=== PATIENT | female | born 1945 ===

== ENCOUNTER → 2025-02-01 13:55 | Outpatient (REF) | payer MEDICARE, SELFPAY | LOC: HWRCS 13:55 | PROVIDERS: ATTENDING PHYSICIAN Internal Medicine Cardiovascular Disease; FAMILY PHYSICIAN Family Medicine Adult Medicine | DX: I10 Essential (primary) hypertension (principal); I47.29 Other ventricular tachycardia | CPT/HCPCS: 93306 ==